=== PATIENT | female | born 1975 | race Caucasian/White ===

== ENCOUNTER 2021-01-24 06:56 | Emergency (ER) | payer OTHER ==
[~2021-01-24] VITALS: Ht 167.6 cm; Wt 61.2 kg
[2021-01-24 07:04] VITALS: BP_SYST 101
[2021-01-24] MEDS ORDERED: traMADol HCL HCL 50 MG TABLET (ULTRAM) PO ONE (07:45)
[2021-01-24] MEDS ORDERED: MORPHINE 4 MG INJ. 4 MG/ML VIAL IM ONE (08:30)
[2021-01-24] MEDS ORDERED: KETAMINE 30 MG/3 ML SYRINGE IM ONE (08:30)
[2021-01-24] MEDS ORDERED: HYDR-3917 PO (08:39)
[2021-01-24] MEDS ORDERED: NAPR-688 PO (08:39)
[2021-01-24 09:13] VITALS: BP_SYST 134
== END 2021-01-24 09:14 | disposition home or self-care (01) ==
LOC: SED 06:56
DX: S29.012A Strain of muscle and tendon of back wall of thorax, initial encounter (principal); M25.512 Pain in left shoulder; Z79.899 Other long term (current) drug therapy; X50.9XXA Other and unspecified overexertion or strenuous movements or postures, initial encounter; Y93.89 Activity, other specified; Y92.89 Other specified places as the place of occurrence of the external cause; Y99.8 Other external cause status
CPT/HCPCS: 73030; 81025; 96372; 99284; J2270